=== PATIENT | female | born 1975 | race Caucasian/White ===

== ENCOUNTER → 2024-05-20 | Outpatient (CLI) | payer BC ==
[~2024-05-20] MED LIST: TORADOL 10MG TA10 MG PO
== END ==
LOC: COL.RAD 15:12
DX: K76.0 Fatty (change of) liver, not elsewhere classified (principal); K21.9 Gastro-esophageal reflux disease without esophagitis; Z90.49 Acquired absence of other specified parts of digestive tract; Z87.19 Personal history of other diseases of the digestive system